=== PATIENT | female | born 1965 | race Caucasian/White ===

== ENCOUNTER 2023-10-11 11:51 | Inpatient (IN) | payer MEDICARE, OTHER, SELFPAY ==
[2023-10-09] VITALS (10 sets, daily range): BP systolic 98–163; BP diastolic 64–86; BMI 15.1; BMI 15.6
--- NOTE | 2023-10-09 10:10 | ED.GENMED ---
History of Present Illness
General
Chief Complaint: Weakness
Time Seen by Provider: 10/09/23 10:08
Travel History
Have you had any contact with someone who has COVID-19?: Unable to Answer
Do you have any symptoms of coronavirus? Fever > 100 degrees, chills, cough, shortness of breath, sore throat, loss of taste or smell, muscle aches, or headache?: Unable to Answer
History of Present Illness
History of Present Illness:
58 yo female w/ hx of MS, seizures, and frequent UTI presents from home via EMS for evaluation of weakness and fever. Typically is quite independent, uses a scooter to maneuver throughout her home. Does have approx 1 hr of nursing care daily. Notes
that she has required lift assists by fire/EMS daily for 2-3 days due to weakness. Also with urgency/burning with urination. Febrile this AM, uncertain if she took an antipyretic. No vomiting.
Past History
Past History
ED Past Medical History: Psychiatric and Other (MS, hemochromatosis, frequent UTIs, self-catheterization)
ED Past Surgical History: None
Social History
Tobacco: Smoker
Alcohol: None
Drug: None
Personal:
Living: alone
Employment: Disabled
Review of Systems
Review of Systems
Allergies reviewed?: Yes
All Other Systems: ROS reviewed and negative except as documented in HPI and ROS
Phy Exam
Physical Exam
Physical Exam:
GEN: Thin and frail, no immediate distress
HEENT: Oral mucosa moist, no scleral icterus
Cardiac: Regular rate and rhythm
Lung: No respiratory distress, no tachypnea, lungs clear to auscultation
Abdomen: Soft, tender in the suprapubic region, no masses or rigidity
MSK: No gross deformity or injuries
Skin: Good color, no pallor or jaundice, no rashes
Neuro: AO x3. Lower extremity contractures are baseline, extreme distracted upper extremity range of motion. Globally weak
Psych: Calm, cooperative
Course
Orders/Labs/Results
Orders:
Orders
10/09/23 10:09
Straight cath- Treatment ONCE
10/09/23 10:32
Complete Blood Count/With Diff Urgent
Comprehensive Metabolic Panel Urgent
Lactic Acid Q4H
Comment: CANCEL 2nd LACTIC ACID IF 1st LACTIC ACID IS LESS THAN 2
Prothrombin Time Urgent
Blood Culture Q30M
FATMATA Source: Blood/Venous
Specimen Description:
10/09/23 10:36
Urinalysis Reflex To Culture Urgent
Date Specimen was Collected: 10/09/23
Time Specimen was Collected: 10:32
Blood Culture Q30M
FATMATA Source: Blood/Venous
Specimen Description:
10/09/23 12:12
COVID-19 Antigen Urgent
Source: Nasal Swab
Influenza A+B Rapid Molecular Urgent
FATMATA Source: Nasal Swab
Specimen Description:
10/09/23 13:30
CefTRIAXone [Rocephin] 1,000 mg IV NOW STA
10/09/23 13:54
Sterile Water [Sterile Water For Injection] 10 ml .ROUTE .STK-MED ONE
10/09/23 14:05
Admit/Transfer Patient As Directed
Co-Sign Provider:
Level of Care: Observation services
Assign to:: Medical/Surgical
Physician / Group: Rohan
Diagnosis: weakness
10/09/23 14:15
Lactic Acid Q4H
Comment: CANCEL 2nd LACTIC ACID IF 1st LACTIC ACID IS LESS THAN 2
Abnormal Lab Results
10/09/23 10/09/23
10:32 10:36
RBC 3.92 L 10^6/uL
(4.20-5.40)
MCV 99.7 H fL
(81.0-99.0)
MCH 33.9 H pg
(27.0-31.0)
Absolute Lymphs (auto) 0.2 L 10^3/uL
(1.2-3.4)
Absolute Monos (auto) 0.7 H 10^3/uL
(0.1-0.6)
Neutrophils % 86.2 H %
(42.2-75.2)
Lymphocytes % 3.3 L %
(20.5-51.1)
Monocytes % 10.0 H %
(1.7-9.3)
Sodium 134 L mmol/L
(135-145)
Chloride 97 L mmol/L
(98-107)
BUN 23 H mg/dl
(7-17)
Creatinine 0.5 L mg/dL
(0.6-1.0)
AST 65 H U/L
(14-36)
ALT 46 H U/L
(0-35)
Alkaline Phosphatase 136 H U/L
(38-126)
Urine Ketones 1+ A
(Negative)
10/09/23 10:32
10/09/23 10:32
Vital Signs
Initial and Last Documented VS:
Initial Vital Signs
BP
121/79
10/09/23 10:05
Last Documented Vital Signs
Temp Pulse Resp BP Pulse Ox
98.5 F 94 18 131/64 96
10/09/23 13:57 10/09/23 14:15 10/09/23 14:15 10/09/23 14:00 10/09/23 13:30
MDM/Problems Addressed
MDM/Problems Addressed:
Patient does have UTI symptoms with dysuria and urgency however urinalysis by straight cath is clear. At this time I have no family obvious cause worsening MS symptoms. Did discuss with the patient regarding the possibility of an isolated MS
exacerbation that may require high-dose steroids however she is quite apprehensive to this due to side effects, at this time I feel it is appropriate to empirically treat for UTI given her associated symptoms as this is a common cause of MS
exacerbations. Will admit to the hospitalist service for further management and potential neurology consultation if symptoms do not improve within the next 24 hours with antibiotics
Comment
Comment:
Prior urine culture data reviewed, typically E coli, occasional fluoroquinolone resistance, no cephalosporin resistance... Will start ceftriaxone empirically
*Critical Care Note
Total Time (30-74mins, 75-104mins- exclusive of procedures): Not Applicable
ED Attending Note
-
Portions of this chart may have been created with voice recognition software.� Occasional wrong word or��sound alike� substitutions may have occurred due to the inherent limitations of voice recognition software.
Discharge Plan
Departure
Patient Disposition: Admit
Date of Disposition: 10/09/23
Time of Disposition: 13:30
Presentation/result/management discussed w/ accepting MD/DO: Hospitalist
Discharge Problem:
Generalized weakness, Multiple sclerosis, UTI symptoms
Interventions
Interventions:
*General Assessment Last Done: 10/09/23 10:11
*Neglect/Abuse Screening Last Done: 10/09/23 10:12
ED- Cardiac Assessment Last Done: 10/09/23 10:14
ED- Neurological Assessment Last Done: 10/09/23 10:14
ED- Pulmonary Assessment Last Done: 10/09/23 10:14
[2023-10-09 10:44] LABS: % Basophils 0.2 % (0-2); % Immature Granulocytes 0.3 % (0-0.5); % Lymphocytes 3.3 % (20.5-51.1); % Neutrophils 86.2 % (42.2-75.2); Absolute Lymphocytes 0.2 10^3/uL (1.2-3.4); Absolute Monocytes 0.7 10^3/uL (0.1-0.6); Absolute Neutrophils 5.7 10^3/uL (1.4-6.5); Hematocrit 39.1 % (37.0-47.0); Hemoglobin 13.3 g/dL (12.0-16.0); Mean Corpuscular Hgb 33.9 pg (27.0-31.0); Mean Corpuscular Volume 99.7 fL (81.0-99.0); Mean Platelet Volume 9.6 fL (7.4-10.4); Nucleated Red Blood Cells % 0 %; Platelet Count 265 10^3/uL (130-400); Red Blood Cell Count 3.92 10^6/uL (4.20-5.40); Red Cell Dist. Width 12.2 % (11.5-14.5); White Blood Cell Count 6.6 10^3/uL (4.8-10.8)
[2023-10-09 10:52] LABS: INR 1.05; PT 13.5 Sec (11.4-14.6)
[2023-10-09 10:52] LABS: Urine Albumin Negative (Neg - Trace); Urine Bilirubin Negative (Negative); Urine Character Clear (Clear); Urine Color Yellow; Urine Glucose Negative (Negative); Urine Ketone 1+ (Negative); Urine Leukocyte Negative (Negative); Urine Nitrite Negative (Negative); Urine Occult Blood Negative (Negative); Urine Specific Gravity 1.005 (<1.030); Urine Urobilinogen Negative (Neg - 1+)
[2023-10-09 10:54] LABS: Lactic Acid 0.9 mmol/L (0.7-2.0)
[2023-10-09 10:56] LABS: ALT (SGPT) 46 U/L (0-35); AST (SGOT) 65 U/L (14-36); Albumin 4.3 g/dl (3.5-5.0); Alkaline Phosphatase 136 U/L (38-126); Blood Urea Nitrogen 23 mg/dl (7-17); Calcium 9.6 mg/dl (8.4-10.2); Carbon Dioxide 29 mmol/L (22-30); Chloride 97 mmol/L (98-107); Estimated Creatinine Clearance 67 ml/min; Glucose 86 mg/dl (70-99); Potassium 3.6 mmol/L (3.5-5.1); Sodium 134 mmol/L (135-145); Total Bilirubin 0.5 mg/dl (0.2-1.3); Total Protein 6.8 g/dl (6.3-8.2); eGFR > 60.00
[2023-10-09 12:37] LABS: COVID-19 Antigen Negative (Negative)
[2023-10-09] MEDS: ROCEPHIN 1000 MG IV (13:58)
--- NOTE | 2023-10-09 14:46 | HPS.HSE ---
Family Physician
-
Family Physician: Ayse Carlos
Chief Complaint
-
Generalized weakness
History of Present Illness
Unfortunate 58-year-old female with history of multiple sclerosis and use assistance like scooter for getting around the house and she lives at home but she has not a daily visiting nurse and nursing 8 to help her out, also her sister checking on
her regularly.
Brought to the hospital complaining of generalized weakness, fatigue and poor appetite with subjective fever also few episodes of nausea and nonbloody vomiting and 3 episodes of the well-formed lower bowel movement neurologically she need rehab care assistant
to move her bowel like disimpaction by visiting nurse but she had those large episode, admit abdominal discomfort but no pain or cramping, denies any chest pain or shortness of breath or nausea or vomiting, admit her urine was dark and kind of
burning and itching, no hematuria. Also admit poor intake over the last few days.
No sick contacts or recent travel dining outside.
Admitted usually able to care for herself when she is alone moving around the house of the scooter but not much last couple of day, she is chronically have weakness of the lower extremity without much movement and it is worse for the last few days,
still have some better movement in upper extremity.
Denies any cough or congestion no choking or aspiration during meals she eats regular food.
Take ibuprofen at least 2-3 times daily and denies any changes stool or urine color or any bleeding event.
Workup in the ER not so far explaining much, mild elevation of the transaminase while urinalysis. Despite getting a dose of IV antibiotic in the ER.
Accompanied by the sister and [id number] at the bedside and she is able to provide detailed information.
Medical History
Past Medical History
Past Medical History: Reports Other
Additional Past Medical History:
Past medical history and archive reviewed:
MS
Functional paraplegia
Hypertension
Former smoker
Mood disorder
Anxiety disorder
Seasonal allergy
Status post amputation of the right greater toe secondary to osteomyelitis
Ambulatory dysfunction
Have bilateral hardening of both gluteal area from the prior injection according to the patient for her MS
Surgical history:
I&D of right gluteal abscess
Breast biopsy
Amputation of the right big toe
Social history: Lives at home gets around with a scooter, and have daily visit by nurse and nursing home assistant
Past Surgical History: Reports Other
Social History
Unable to obtain full social history at this time due to: Other
Family History
Family History: Other
Allergies / Home Medications
Allergies reflects when Allergies were last updated in [facility].
Home Medications with original date entered in [facility]
Allergy/Medication List:
Allergies
Allergy/AdvReac Type Severity Reaction Status Date / Time
No Known Allergies Allergy Verified 10/09/23 13:59
Home Medications
fingolimod 0.5 mg capsule (Gilenya) 0.5 mg PO DAILY MS 06/30/17
ibuprofen 400 mg tablet 400 mg PO TID 06/30/17
losartan 50 mg tablet 50 mg PO BID Blood pressure 06/30/17
multivitamin with minerals (Hair,Skin and Nails tablet) 1 ea PO DAILY Supplement 01/23/19
citalopram 20 mg tablet 40 mg PO DAILY Depression 05/31/19
alprazolam 0.5 mg tablet 0.5 mg PO TID Mental Health/Anxiety 12/09/20
baclofen 20 mg tablet 20 mg PO QID Muscle spasms 12/09/20
methenamine hippurate 1 gram tablet 500 mg PO BID Urinary issue 12/09/20
mirabegron 25 mg tablet,extended release 24 hr (Myrbetriq) 25 mg PO DAILY Urinary issue 12/09/20
modafinil 200 mg tablet 100 mg PO DAILY Stimulant 12/09/20
temazepam 15 mg capsule 30 mg PO HS Sleep 12/09/20
amlodipine 5 mg tablet (Norvasc) 5 mg PO DAILY #20 tabs 05/08/21
cranberry fruit concentrate 250 mg chewable tablet (Azo Cranberry) 500 mg PO DAILY 10/09/23
Review of Systems
-
A 12 point ROS was completed and negative except as noted: Yes
Physical Exam
Vital Signs
Vital Signs
Temp Pulse Resp BP Pulse Ox
98.5 F 94 18 131/64 96
10/09/23 13:57 10/09/23 14:15 10/09/23 14:15 10/09/23 14:00 10/09/23 13:30
Physical exam:
General: Lethargic awake, alert and oriented x3, not in distress and holds appropriate conversation.
HEENT: No active discharge, ecchymosis or bruising, very dry lips, tongue and mucous membrane.
Eyes: No discharge or red conjunctiva, no nystagmus, pupils are reactive and equal
Neck:Supple, no JVD no bruit no goiter.
Respiratory: Normal AP contour and diameter, normal chest wall movement, normal respiratory effort, no respiratory distress,
Lungs: Good air entry bilaterally, no wheezing or rhonchi, no rales or crackles
Heart: S1, S2 regular, normal rate, no added sound.
Gastrointestinal: Positive bowel sounds, soft, nontender, no guarding or rigidity or organomegaly
Musculoskeletal:-Patchy hardening nodules in the both buttocks area, no ulceration but mild redness in mid upper back, no much movement in the lower extremities well have a good movement in upper extremities,, no chest wall abnormality or
tenderness. no muscle tenderness or any joint swelling or tenderness.
Extremities: Right big toe amputation, no pitting edema, good peripheral pulses, good range of motion
Skin: Warm and dry, no ulceration, normal color.
Neurological: Awake, alert and oriented x3, cranial nerve II-XII grossly intact, speech clear and comprehensive, good muscle tone, normal sensory and upper extremity with mild motor weakness in upper extremity, lower extremities have decreased
sensation and decreased motor ability able to move it from [id number] and not able to lift it off the bed,
Psychiatric: Normal mood, normal thought and judgment, normal affect,
Physical Exam
General: Other
Laboratory Results
-
10/09/23 10:32
10/09/23 10:32
Laboratory Results
PT 13.5 Sec (11.4-14.6) 10/09/23 10:32
INR 1.05 10/09/23 10:32
Lactic Acid 0.9 mmol/L (0.7-2.0) 10/09/23 10:32
Total Bilirubin 0.5 mg/dl (0.2-1.3) 10/09/23 10:32
AST 65 U/L (14-36) H 10/09/23 10:32
ALT 46 U/L (0-35) H 10/09/23 10:32
Alkaline Phosphatase 136 U/L (38-126) H 10/09/23 10:32
Data Reviewed
-
Medical Tests (Nuc Med, Echo, EKG etc): Discussed with Nurse, Discussed with Patient and Discussed with Family
Lab Data: Labs Reviewed by me, Discussed with Patient and Discussed with Family
Old Records: Reviewed
Impression/Plan
-
IMPRESSION:
58-year-old female with history of MS presented with generalized weakness, worse over baseline, some urinary symptoms also last couple of days she has some episodes of the vomiting and large bowel movement while wet and loose, concern for viral
gastroenteritis and dehydration, UA showed no evidence of UTI while MS flareup could be a possibility.
Generalized weakness
Concern for MS flareup
Urinary symptom but no evidence of urinary tract infection urinalysis
Nausea and vomiting
Possible viral gastroenteritis
Hyponatremia sodium 134 on admission
Dehydration, BUN is 23
Elevated transaminitis, possibly from muscular while the process could be a possibility but she has no abdominal pain will monitor for now.
Functional paraplegia
Ambulatory dysfunction
MS
Hypertension
Anxiety and mood disorder
PLAN:
Will hold off further antibiotics received a dose in the ER send there is no source of infection
Lactic acid and blood culture collected
I will get x-ray of the chest to complete the workup
IV fluid with normal saline 100 mill per hour for the next 20 hours
Nausea medication
Aspiration fall precaution
I will give a dose of Solu-Medrol for suspected MS flareup, discussed with neurology and they will see the patient.
Neurology consult.
Defer further workup and eval to neurology.
Advised about not taking NSAID regularly as she takes 400 mg ibuprofen 2-3 times daily, risks and side effects further explained at least need to take some H2 deni or PPI I will start famotidine twice daily for now.
Recheck lab.
PT OT
Monitor vital sign.
All discussed with the patient and the family
Discussed with the nurse
CODE STATUS full code
DVT prophylaxis is Lovenox
--- NOTE | 2023-10-09 15:07 | CON.NEURO ---
Neuro Assessment/Plan
Assessment
IMPRESSIONS/RECOMMENDATIONS:
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
No evidence of UTI, however, patient is experiencing nausea and photophobia
Plan
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
There is no evidence at this time patient would benefit from the use of high-dose steroids
Would consider MRI of brain if patient reported new weakness or visual change, neither of which is the patient reporting currently
Will continue to follow peripherally.
Consultation
Order
Date of Consultation: 10/09/23
Requesting Provider: Hospitalist
Reason for Consult: Multiple Sclerosis
Subjective/Objective
Subjective Data
Date of Service: October 09, 2023
DATE/TIME OF CONSULTATION: 06/05/2019 at 1000
Reason for Consultation: possible MS Flare
History of Present Illness:
This is a 53 year old female who has presented to the hospital with weakness and body aches. Patient reports day prior to admission (05/30/2019) She started to feel very achy and had a low grade fever. She also reported nausea. In the emergency
department she was found to have rhabdomyolysis, CPK > 1200. At baseline pt is wheelchair bound secondary to MS. She was diagnosed with MS at age 22. She follows with Dr. David Mireles at [facility]. She is unable to recall when her last appointment was
or when she las had MRI's. She is currently on Gilenya, is unable to recall how long, or what previous medications she has been on. She reports she has chronic blurred vision. She has had contractures of b/l LE for many years. She self catheterizes
herself and on day of admission she was unable to cath herself. Once of her nurses came and catheterized her and told her her urine was cloudy. Once admitted she started with a diffuse erythematous rash, she has had periorbital redness, and
swelling. She is reporting b/l eye pain, which feels like pins and needles and therefor is having trouble opening her eyes. She reports maybe a mild increase in blurred vision. Since admission she has been seen by Rheumatology-they believe that
symptoms are related to rhabdo. She has now been seen by hematology, they are going to work her up for amyloid. Plans for bx and myeloma workup. She still complains of joint and muscle aches. She states she is still weak and has eye pain.
IMPRESSIONS/RECOMMENDATIONS:
Abrupt onset of eye pain
with prolonged hx of Multiple Sclerosis, recent elevation in CPK and ESR
and prior dx of hemochromatosis
REC:
check MRI of brain with and without to determine if optic neuritis present
consider steroids to treat ? dermatomyositis with violaceous periorbital rash
consider additional MRIs
follow serial CPK, ESR, CRP
continue fingolimod until additional information available
would withhold steroids until clarity regarding new exacerbation or absence of same
Patient reports sense of pruritis and frequency of urination since approximately 1 week ago. 3 days ago had greater difficulty with transfer and generalized strength with overall sense of ennui. Two days ago had emesis. Has experienced similar
symptoms timed with UTI.
Previously exposed to Betaseron (beta-interferon). Also has utilized Modafinil for fatigue. Patient no longer drives.
Has sense generalized weakness 1-2x/year.
Objective Data
Vital Signs
Temp Pulse Resp BP Pulse Ox
36.9 C 94 18 131/64 96
10/09/23 13:57 10/09/23 14:15 10/09/23 14:15 10/09/23 14:00 10/09/23 13:30
Lab Results
10/09/23 10:32
10/09/23 10:32
PT 13.5 Sec (11.4-14.6) 10/09/23 10:32
INR 1.05 10/09/23 10:32
Sodium 134 mmol/L (135-145) L 10/09/23 10:32
Potassium 3.6 mmol/L (3.5-5.1) 10/09/23 10:32
BUN 23 mg/dl (7-17) H 10/09/23 10:32
Glucose 86 mg/dl (70-99) 10/09/23 10:32
Calcium 9.6 mg/dl (8.4-10.2) 10/09/23 10:32
Patient Allergies
No Known Allergies Allergy (Verified 10/09/23 13:59)
Review of Systems
-
History Source: Patient
All other systems: Reviewed and negative
EENT: Other (white lights in vision); Negative Decreased Vision or Swallowing Difficulty
Respiratory: Negative Trouble Breathing
Cardiac: Chest Pain (left-side x 2 days)
Abdomen/GI: Nausea; Negative Incontinence of Stool
Genitourinary: Incontinence
Musculoskeletal: Other (buttocks, right hip); Negative Back Pain or Neck Pain
Neuro: Other (toes, photophobia); Negative Dizzy or Headache
Physical Exam
-
General: No Apparent Distress and Appears Stated Age
Eyes: OU Absent Papilledema, Round OU, [place] Conjunctivae and No Ptosis
HEENT: Anicteric and Moist Mucous Membranes
Neck: Full Range of Motion
Respiratory: No Dyspnea
Cardiac: No JVD
GI: Non-distended
Extremities: No Clubbing, No Cyanosis and No Edema
Psych: Intact Judgement/Insight
Extended Neurological Exam
Mood & Affect: Mood Unremarkable and Affect Unremarkable
Attention Span & Concentration: Awake, Alert, Interactive and No Difficulty with 2 Step Request
Memory: Unremarkable
Tremor: Hand Tremor Absent and Head Tremor Absent
Involuntary Movement: Other (Minimal spastic movements of the right lower extremity after passive movement)
Speech: Quality Unremarkable and Quantity Unremarkable
Cranial Nerve II: Left Eye: Pupillary Reactivity Unremarkable, Pupillary Size Unremarkable and Visual Hallman Intact
Cranial Nerve II: Right Eye: Pupillary Reactivity Unremarkable, Pupillary Size Unremarkable and Visual Hallman Intact
Cranial Nerves III, IV, : Extraocular Movement: Extraocular Movement Full in all Directions
Cranial Nerve VII: Facial Symmetry: Normal Facial Symmetry
Cranial Nerve VIII: Hearing: Unremarkable Hearing to Normal Conversational Volume
Cranial Nerves IX, X: Palate Movement: Palate Elevation Symmetric
Cranial Nerve XII: Tongue Protusion: Midline
Muscle Strength, Overall: Absent (In bilateral lower extremities)
Muscle Bulk & Tone: Decreased Bulk (In bilateral upper extremities) and Increased Tone (In bilateral lower extremities severely equally)
Pronator Drift: No Drift in Upper Extremities and Unable to Assess (Bilateral lower extremities)
Deep Tendon Reflexes: Absent Throughout
Touch Sensation: Unremarkable
Coordination: [id number] Testing Unremarkable
Babinski Sign: Absent Bilaterally
Gait & Station: Unable to Assess
Data Reviewed
-
CT Head: Report Reviewed
Labs: Ordered and Report Reviewed
Reviewed with: Physician, Patient and Family
Old Records: Summarized
Medications
-
Home Medications
�Medication �Instructions �Recorded
fingolimod 0.5 mg capsule (Gilenya) 0.5 mg PO DAILY MS 06/30/17
ibuprofen 400 mg tablet 400 mg PO TID 06/30/17
losartan 50 mg tablet 50 mg PO BID Blood pressure 06/30/17
multivitamin with minerals 1 ea PO DAILY Supplement 01/23/19
(Hair,Skin and Nails tablet)
citalopram 20 mg tablet 40 mg PO DAILY Depression 05/31/19
alprazolam 0.5 mg tablet 0.5 mg PO TID Mental Health/Anxiety 12/09/20
baclofen 20 mg tablet 20 mg PO QID Muscle spasms 12/09/20
methenamine hippurate 1 gram tablet 500 mg PO BID Urinary issue 12/09/20
mirabegron 25 mg tablet,extended 25 mg PO DAILY Urinary issue 12/09/20
release 24 hr (Myrbetriq)
modafinil 200 mg tablet 100 mg PO DAILY Stimulant 12/09/20
temazepam 15 mg capsule 30 mg PO HS Sleep 12/09/20
amlodipine 5 mg tablet (Norvasc) 5 mg PO DAILY #20 tabs 05/08/21
cranberry fruit concentrate 250 mg 500 mg PO DAILY 10/09/23
chewable tablet (Azo Cranberry)
Past History
Past History
ED Past Medical History: HTN, Psychiatric and Other (MS, hemochromatosis, frequent UTIs, self-catheterization, right hip dislocation, emphysema)
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
Social History
Tobacco: Non-smoker
Alcohol: Former
Drug: None
Personal:
Living: alone
Employment: Disabled
Family History
Family History: Other (reviewed and non-contributory)
[2023-10-09 16:13] LABS: Erythrocyte Sed Rate 19 mm/hour (0-20)
[2023-10-09] MEDS: XANAX 0.5 MG PO ×2 (16:47→21:38)
[2023-10-09] MEDS: LOVENOX 40 MG SC (16:47)
[2023-10-09] MEDS: LIORESAL 20 MG PO ×2 (16:48→21:36)
[2023-10-09] MEDS: NSS 1000 IV (16:51)
[2023-10-09 17:35] LABS: TSH Reflex To Free T4 2.91 uIU/ml (0.47-4.68)
[2023-10-09 17:39] LABS: Ferritin 70.4 ng/ml (11.1-264.0)
--- NOTE | 2023-10-09 18:09 | PTCARENOTE ---
Patient home med Deneen sent to pharmacy and verification of retrieval provided via phone by HAYLIE.
[2023-10-09 18:11] LABS: Folate > 20.0 ng/ml (2.76-20); Vitamin B12 742 pg/ml (239-931)
--- NOTE | 2023-10-09 18:11 | PTCARENOTE ---
Patient reported to RN steroids were not recommended for her current tx in hospital, states she was informed this in person in ED, RN reached out to Neurology. Patient IV Methylpredisone DC per Dr. Casillas and Carolina Madrigal via tiger text.
--- NOTE | 2023-10-09 20:00 | PTCARENOTE ---
Pt reports she str caths herself q3-4 hrs at home. Pt also states bladder scans are not accurate d/t her anatomy. Pt last str cathed in ED at 1300 per pt and she c/o the urge to void but is unable to. House HADOOP ANALYST made aware and orders obtained and pt
str cathed without difficulty.
[2023-10-09] MEDS: PEPCID 20 MG PO (20:05)
[2023-10-09] MEDS: HIPREX 0.5 GRAM PO (20:05)
[2023-10-09] MEDS: COZAAR 50 MG PO (20:05)
[2023-10-09] MEDS: RESTORIL 30 MG PO (21:38)
[2023-10-10] MEDS: NSS 1000 IV (03:31)
[2023-10-10 06:27] LABS: % Basophils 0.3 % (0-2); % Eosinophils 0.3 % (0-6); % Immature Granulocytes 0.3 % (0-0.5); % Lymphocytes 4.3 % (20.5-51.1); % Monocytes 11.9 % (1.7-9.3); % Neutrophils 82.9 % (42.2-75.2); Absolute Lymphocytes 0.2 10^3/uL (1.2-3.4); Absolute Monocytes 0.5 10^3/uL (0.1-0.6); Absolute Neutrophils 3.3 10^3/uL (1.4-6.5); Hematocrit 36.1 % (37.0-47.0); Hemoglobin 12.6 g/dL (12.0-16.0); Mean Corp Hgb Conc. 34.9 g/dL (33.0-37.0); Mean Corpuscular Hgb 33.6 pg (27.0-31.0); Mean Corpuscular Volume 96.3 fL (81.0-99.0); Mean Platelet Volume 9.7 fL (7.4-10.4); Nucleated Red Blood Cells % 0 %; Platelet Count 222 10^3/uL (130-400); Red Blood Cell Count 3.75 10^6/uL (4.20-5.40); Red Cell Dist. Width 12.1 % (11.5-14.5)
--- NOTE | 2023-10-10 06:36 | W.PN.HOSP.TC ---
Today's Communication/Plan
-
PT/OT eval
replete potassium magnesium
observe
discharge planning home rehab set up
Assessment / Plan
Assessment / Plan
Physical Exam
General: No pallor, cyanosis, or jaundice. Cachectic
HEENT: Throat clear. PERRLA Normocephalic atraumatic
NECK: Supple. No JVD Carotid Bruits
RESPIRATORY: Lungs clear to auscultation. No crackles wheezes stridor
CVS: S1, S2 normal. RRR. No murmur, rub or gallop.
ABDOMEN: Soft, non-tender. No distension. BS+/normal.
EXTREMITIES: No peripheral cyanosis or edema. Thin lower ext's, 1-2/5 strength lower ext's b/l baseline as per patient
FAMILY PROTECTION SPECIALIST: AOx3
58-year-old female with history of MS presented with generalized weakness, worse over baseline, some urinary symptoms also last couple of days she has some episodes of the vomiting and large bowel movement while wet and loose, concern for viral
gastroenteritis and dehydration, UA showed no evidence of UTI, MS flare ruled out as per neuro eval
Generalized weakness
Concern for MS flareup (ruled out as per Neuro)
Patient self cath at baseline, UA neg for UTI
Nausea and vomiting Possible viral gastroenteritis vs adverse food rxn (resolved)
Mild Hyponatremia stable
Mild Transaminitis resolving
Functional paraplegia
Ambulatory dysfunction
Hypertension
Anxiety and mood disorder
Chronic Constipation, visiting nurse disimpacts patient daily, pt refuses laxatives
PLAN:
received empiric abx in ED, monitoring off
Lactic acid negative, blood culture NGTD
CXR not suggestive of PNA, signs of severe COPD noted (stable respiratory status on room air)
IVF support completed
Nausea medication prn
Aspiration fall precaution
Patient Advised about not taking NSAID regularly as she takes 400 mg ibuprofen 2-3 times daily, risks and side effects further explained at least need to take some H2 deni or PPI, famotidine twice daily started.
Urinary Retention with Overflow incontinence
patient frequently self cath at home baseline
refuses Palafox
[facility]
PT OT eval pending, patient has made clear that she refuses SNF rehab placement but would be in favor for home rehab set up.
Hypokalemia
Hypomagnesemia
monitor and replete as necessary
Discussed with patient and her nephew Triston
Discussed with the nurse
CODE STATUS full code
DVT prophylaxis is Lovenox
Observation
I spent a total of 60 minutes with the patient or on the floor. More than 50% of this time involved counseling and coordination of care.
Anticipated Discharge: Within 24 hours
Subjective/Interval History
-
Date of Service: October 10, 2023
No acute distress resting comfortably in bed. reports overall feeling well. Continues to report generalized weakness.
Objective Data
-
Labs:
Laboratory Results
10/10/23
05:47
WBC 4.0 L
Hgb 12.6
Hct 36.1 L
Plt Count 222
Sodium Pending
Potassium Pending
Chloride Pending
Carbon Dioxide Pending
BUN Pending
Creatinine Pending
Glucose Pending
Calcium Pending
Total Bilirubin Pending
AST Pending
ALT Pending
Alkaline Phosphatase Pending
Vital Signs:
Vital Signs
Temp Pulse Resp BP Pulse Ox
98.9 F 96 18 143/69 97
10/09/23 23:19 10/09/23 23:19 10/09/23 23:19 10/09/23 23:19 10/09/23 23:19
I&O
10/08/23 10/09/23 10/10/23
06:59 06:59 06:59
Intake Total 2040 / 2040
Output Total 750 / 750
Balance 1289 / 1290
[2023-10-10 06:52] LABS: ALT (SGPT) 32 U/L (0-35); AST (SGOT) 48 U/L (14-36); Albumin 3.3 g/dl (3.5-5.0); Alkaline Phosphatase 102 U/L (38-126); Blood Urea Nitrogen 14 mg/dl (7-17); Calcium 8.5 mg/dl (8.4-10.2); Carbon Dioxide 22 mmol/L (22-30); Chloride 103 mmol/L (98-107); Estimated Creatinine Clearance 70 ml/min; Glucose 75 mg/dl (70-99); Magnesium 1.4 mg/dl (1.6-2.3); Potassium 3.4 mmol/L (3.5-5.1); Sodium 135 mmol/L (135-145); Total Bilirubin 0.4 mg/dl (0.2-1.3); Total Protein 5.4 g/dl (6.3-8.2); eGFR > 60.00
[2023-10-10 07:00] VITALS: BP 146/86
[2023-10-10 07:15] LABS: TSH 3.36 uIU/ml (0.47-4.68)
[2023-10-10] MEDS: KCL 40 MEQ PO (08:44)
[2023-10-10] MEDS: MYRBETRIQ EXTENDED RELEASE 25 MG PO (08:44)
[2023-10-10] MEDS: PROVIGIL 100 MG PO (08:44)
[2023-10-10] MEDS: HIPREX 0.5 GRAM PO ×2 (08:45→20:18)
[2023-10-10] MEDS: LIORESAL 20 MG PO ×4 (08:46→22:23)
[2023-10-10] MEDS: XANAX 0.5 MG PO ×3 (08:46→22:23)
[2023-10-10] MEDS: PEPCID 20 MG PO ×2 (08:46→20:18)
[2023-10-10] MEDS: COZAAR 50 MG PO ×2 (08:46→20:18)
[2023-10-10] MEDS: CELEXA 40 MG PO (08:46)
[2023-10-10] MEDS: NORVASC 5 MG PO (08:46)
[2023-10-10] MEDS: NON-FORMULARY ITEM 0.5 MG PO (08:47)
[2023-10-10] MEDS: MAGNESIUM SULFATE 50 IV (08:48)
[2023-10-10 09:25] LABS: Vitamin B12 739 pg/ml (239-931)
[2023-10-10 11:24] LABS: Phosphorus 3.6 mg/dl (2.5-4.5)
[2023-10-10 15:00] VITALS: BP 150/81
--- NOTE | 2023-10-10 15:51 | CM ---
Patient seen bedside, initial assessment completed. Patient reports she resides in a private home with a first floor set up, has a private duty nurse every day minus Wednesday, has additional care 4 days a week to assist with cooking and cleaning.
Patient reports she has a scooter, grab bars, hospital bed, seat lift in bathroom, raised toilet seat. Patient reports [facility], history of SNFs. Patient confirms PCP Ayse Carlos, pharmacy [facility]. KLINE letter explained,
refused to sign, placed in patients chart. Patient requesting [facility] upon discharge, does not want to go to a facility. CM will continue to follow for discharge planning needs.
Plan; home with services, does not want to go to SNF.
[2023-10-10] MEDS: LOVENOX 40 MG SC (17:40)
[2023-10-10] MEDS: RESTORIL 30 MG PO (22:23)
[2023-10-10 23:00] VITALS: BP 118/53
[2023-10-11 07:06] LABS: Hematocrit 37.7 % (37.0-47.0); Hemoglobin 12.9 g/dL (12.0-16.0); Mean Corp Hgb Conc. 34.2 g/dL (33.0-37.0); Mean Corpuscular Hgb 33.9 pg (27.0-31.0); Platelet Count 241 10^3/uL (130-400); Red Blood Cell Count 3.81 10^6/uL (4.20-5.40); Red Cell Dist. Width 12.4 % (11.5-14.5); White Blood Cell Count 2.9 10^3/uL (4.8-10.8)
[2023-10-11 07:29] LABS: Blood Urea Nitrogen 14 mg/dl (7-17); Calcium 8.7 mg/dl (8.4-10.2); Carbon Dioxide 23 mmol/L (22-30); Chloride 103 mmol/L (98-107); Estimated Creatinine Clearance 70 ml/min; Glucose 79 mg/dl (70-99); Magnesium 1.8 mg/dl (1.6-2.3); Phosphorus 4.1 mg/dl (2.5-4.5); Potassium 3.5 mmol/L (3.5-5.1); Sodium 133 mmol/L (135-145); eGFR > 60.00
[2023-10-11 07:39] VITALS: BP 128/64
[2023-10-11] MEDS: CELEXA 40 MG PO (08:55)
[2023-10-11] MEDS: NON-FORMULARY ITEM 0.5 MG PO (08:56)
[2023-10-11] MEDS: COZAAR 50 MG PO ×2 (08:56→21:13)
[2023-10-11] MEDS: HIPREX 0.5 GRAM PO ×2 (08:56→21:12)
[2023-10-11] MEDS: PROVIGIL 100 MG PO (08:57)
[2023-10-11] MEDS: LIORESAL 20 MG PO ×4 (08:57→21:11)
[2023-10-11] MEDS: MYRBETRIQ EXTENDED RELEASE 25 MG PO (08:57)
[2023-10-11] MEDS: NORVASC 5 MG PO (08:57)
[2023-10-11] MEDS: PEPCID 20 MG PO ×2 (08:57→21:13)
[2023-10-11] MEDS: XANAX 0.5 MG PO ×3 (08:58→21:12)
[2023-10-11] MEDS: TYLENOL 650 MG PO (09:24)
[2023-10-11 09:54] VITALS: BP 110/55; PULSE 87
--- NOTE | 2023-10-11 13:21 | CON.MD ---
Consultation - Medical
-
Referring Provider: Dr. Danielle Jackson
Chief Complaint: Worsening weakness
History of Present Illness: 58-year-old female with past medical history multiple sclerosis and hemochromatosis presented to [place] emergency department 10/09/23 with generalized weakness with some vomiting and concern for gastroenteritis. She
was seen by neurology without concern for worsening multiple sclerosis. Thought likely with some deconditioning secondary to possible gastroenteritis.
She notes she has had multiple sclerosis being in her 20s and has had a overall decline in her function. She currently has some cognitive concerns and has essentially loss use of her lower extremities over time. She uses a scooter and transfers
from bed to scooter to commode over her toilet at home. She has been able to remain independent but continues to have worsening spasms and worsening positioning leading to skin concerns. She had gone up to baclofen 20 mg 3 times a day for spasm
control which she notes did improve her positioning and spasms but still was not good enough. She has never been evaluated for Botox, wheelchair or baclofen pump. Her nephew is with her and notes some progressive worsening of concerns. Patient does
not drink enough fluids and is often dehydrated because she is afraid of having to go to the bathroom more often. She has been straight cathing since her 20s because she was told that she had to. She does empty at times on her own but apparently has
not had urodynamics.
She does have some people to come to help her in various amounts throughout the week.
Past Medical History: Anxiety, multiple sclerosis, chronic urinary retention(straight cathing at home), lower extremity contractures versus spasms, hypertension, tobacco abuse, aspiration pneumonia, lung mass, hemochromatosis, sepsis with right
buttocks abscess
Procedure History: Ear tubes, skin procedure right hip. Right buttocks abscess I&D
Family History: Father with colon cancer, mother with lung concerns but was heavy smoker.
Social History:
Functional Level Premorbidly: Assistance with ADLs and homemaking, uses scooter for mobility and transfers from scooter, has assistance 6 days a week in the morning and additional 4 hours 4 days a week..
Functional Level Currently: Max assist bed mobility, dependent transfers
Tobacco: Smoking history
Alcohol: Denies
Drug use: Denies
Lives with: Alone
24-hour assistance available: No
Number of floors: 1
# steps to enter: 0
Driving: No
Occupation: Disability
Allergies:
Allergy/AdvReac Type Severity Reaction Status Date / Time
No Known Allergies Allergy Verified 10/09/23 13:59
Review of Systems:
Constitutional: (x) Normal _
Eye: (x) Normal _
Ear/Nose/Throat: (x) Normal _
Respiratory: (x) Normal _
Cardiovascular: (x) Normal _
Gastrointestinal: (x) abnormal_chronic constipation requiring manual evacuation
Genitourinary: (x) abnormal_intermittent cath program at home unable to void on her own, however is incontinent of urine at the hospital.
Musculoskeletal: (x) abnormal_spasm pain in bilateral lower extremities
Integumentary: (x) abnormal_various skin concerns with worsening of spasticity and positioning.
Neurologic: (x) abnormal_multiple sclerosis with cognitive and lower extremity motor control/spasticity concerns.
Psychiatric: (x) abnormal_anxiety
Endocrine: (x) Normal _
Hematologic/Lymphatic: (x) Normal _
Allergic/Immunologic: (x) Normal _
Medications:
Active Current Visit Medication List
Category Date Time Status
Acetaminophen [Tylenol] Med 10/09/23 16:12 Active
650 mg PO Q4HPRN PRN
Alprazolam [Xanax] Med 10/09/23 16:00 Active
0.5 mg PO TID
Amlodipine [Norvasc] Med 10/10/23 08:00 Active
5 mg PO DAILY
Baclofen [Lioresal] Med 10/09/23 18:00 Active
20 mg PO QID
Citalopram [Celexa] Med 10/10/23 08:00 Active
40 mg PO DAILY
Enoxaparin Sodium [Lovenox] Med 10/09/23 18:00 Active
40 mg SC QPM
Famotidine [Pepcid] Med 10/09/23 20:00 Active
20 mg PO BID
Flush (0.9% Sodium Chloride) [Flush (Nss)] Med 10/09/23 17:00 Active
See Dose Instructions IV PER PROTOCOL
Ibuprofen [Motrin] Med 10/09/23 16:00 Active
400 mg PO TID PRN
Losartan [Cozaar] Med 10/09/23 20:00 Active
50 mg PO BID
Methenamine Hippurate [Hiprex] Med 10/09/23 20:00 Active
0.5 gram PO BID
Mirabegron Extended Release [Myrbetriq Extended Release Med 10/10/23 08:00 Active
]
25 mg PO DAILY
Modafinil [Provigil] Med 10/10/23 08:00 Active
100 mg PO DAILY
Ondansetron Injectable [Zofran] Med 10/09/23 16:12 Active
4 mg IV Q6HPRN PRN
Temazepam [Restoril] Med 10/09/23 22:00 Active
30 mg PO HS
fingolimod [Gilenya] Med 10/10/23 08:00 Active
See Dose Instructions PO DAILY
Vitals:
Temp Pulse Resp BP Pulse Ox
98.5 F 87 18 128/64 95
10/11/23 07:39 10/11/23 07:39 10/11/23 07:39 10/11/23 07:39 10/11/23 08:45
Height 5 ft 5 in
Actual Weight 42.592 kg
Body Mass Index (BMI) 15.6
Physical Exam:
General Appearance/Observation: Well-developed, well-nourished female with knees up towards her chest lying in bed with multiple pillows and heel protectors.
Pain/Comfort Assessment: Denies currently, can have pain with spasms.
Mood/Affect: Anxious
Integumentary: Right prior first toe amputation
Eyes: Conjunctiva/Lids: normal Pupils: pupils equal round and reactive to light and Accommodation
Ears/Nose/Throat: oral mucosa moist, throat clear. Lips/Teeth/Gums: normal
Neck: No muscle spasm or tenderness
Cardiovascular: Heart: regular, no murmur
Pulses: dorsalis pedis 2+ bilaterally
Respiratory: Respiratory Effort/Chest Expansion: normal Auscultation: Clear to auscultation bilaterally
Gastrointestinal: abdomen not tender, no distension, normal abdominal bowel sounds
Genitourinary: No Palafox
Extremities: Edema: None, no calf tenderness. Limited lower extremity exam due to severe spasticity.
Neurology Exam:
Orientation: Alert, Oriented to self, Time, Place
Memory: Impaired for some historical information
Speech: Intact
Comprehension: Impaired
Two step command: Intact
Cranial Nerves:
CNII: Pupillary light reflex: Intact
CN III, IV, : Extraocular muscles: Intact
CN V: Facial Sensation at Forehead: Intact , Maxilla: Intact, Mandible: Intact
CN VII: Facial movement: Symmetric
CN VIII: Hearing: Normal
CN IX/X: Speech & swallow: Normal, Position of Uvula: Midline
CN XI: Shoulder shrug: Symmetric
CN XII: Tongue protrusion: Midline
Sensory:
Light touch: Intact in bilateral upper and lower extremities
Reflexes:
Biceps: 2+ bilaterally
Brachioradialis: 2+ bilaterally
Triceps: 2+ bilaterally
Patellar: 3+ bilaterally
Achilles: 3+ bilaterally
Babinski: Not assessed
Cerebellar: Dysmetria/Ataxia: No dysmetria
Musculoskeletal:
Motor: (Manual muscle scale 0-5)
Muscle SA EF WE EE FF FA HF KE DF EHL PF
Right 5 5 4 4 4 0 0 0 - 0
Left 5 5 4 4 4 0 0 0 0 0
Tone: Significantly increased in all extremities, particularly Bilateral lower extremities
Range of Motion: Limited range of motion in both lower extremity secondary to spasticity
Lab Results
Laboratory Data
10/11/23 05:35
10/11/23 05:35
PT 13.5 Sec (11.4-14.6) 10/09/23 10:32
INR 1.05 10/09/23 10:32
Total Bilirubin 0.4 mg/dl (0.2-1.3) 10/10/23 05:47
AST 48 U/L (14-36) H 10/10/23 05:47
ALT 32 U/L (0-35) 10/10/23 05:47
Alkaline Phosphatase 102 U/L (38-126) 10/10/23 05:47
Total Protein 5.4 g/dl (6.3-8.2) L D 10/10/23 05:47
Albumin 3.3 g/dl (3.5-5.0) L 10/10/23 05:47
Diagnostic Results: as per HPI
Assessment
58-year-old right-hand dominant female PMH of multiple sclerosis with what appears to be neurogenic bowel and bladder and severe lower extremity spasticity with debility from possible gastroenteritis.
Plan
PM&R PT/OT to increase independence with ADLs, improve balance, coordination, endurance, strength, mobility, community reintegration, decreased burden of care on others and family education.
-She would benefit from an outpatient evaluation for power mobility and appropriate seating to help prevent pressure sores.
MS: Has been on Gilenya. Has bilateral lower extremity severe spasticity with neurogenic bladder requiring straight catheter many years however has not had official urodynamics which should be done as an outpatient. On Provigil for attention
improvement, baclofen for spasticity. Nonambulatory at home and uses scooter but able to transfer on her own from surface to surface with assistance from caregiver for ADLs.
Spasticity: Baclofen 20 mg 4 times a day, risk for skin breakdown and infections if she does not have proper management of her lower extremities. Still significant lower extremity spasticity, may benefit from Botox or baclofen pump in the future if
she is interested.
-At high risk of having wounds that will lead to further surgeries, further debility, and possibly pain/infection/worsening spasms.
Pressure ulcer prevention: Vitamin C, zinc, multivitamin. Weight shifts in wheelchair and bed. Pressure-relief of heels.
HTN: Norvasc, losartan. Monitor closely
Psych: Has anxiety/depression. Monitor mood, adjust Cymbalta as needed. Xanax as needed very overwhelmed with change and new concerns exacerbated by her cognitive deficits from multiple sclerosis plus or minus hemochromatosis. Takes Restoril for
sleep.
Skin: monitor for pressure sores/rashes/lesions.
Pain: acetaminophen as needed.
Neurogenic Bowel: Colace and Senna, PRN bisacodyl. Notes requiring frequent disimpaction at home.
Neurogenic Bladder: Has history of UTI. Self intermittent catheterization program that she had been doing for years.
DVT Prophylaxis Mechanical and heparin.
Pulmonary: Incentive spirometry
Safety: Continue to reinforce assistance with all transfers.
Code Status: Full code
Functional and Medical Goals: Patient will be able to transfer on her own, navigate with scooter and return to prior level assistance with ADLs.
Discharge Destination: SNF as discussed with patient.
--- NOTE | 2023-10-11 14:29 | W.PN.HOSP.TC ---
Today's Communication/Plan
-
Physiatry consulted
Assessment / Plan
Assessment / Plan
Physical Exam
General: No pallor, cyanosis, or jaundice. Cachectic
HEENT: Throat clear. PERRLA Normocephalic atraumatic
NECK: Supple. No JVD Carotid Bruits
RESPIRATORY: Lungs clear to auscultation. No crackles wheezes stridor
CVS: S1, S2 normal. RRR. No murmur, rub or gallop.
ABDOMEN: Soft, non-tender. No distension. BS+/normal.
EXTREMITIES: No peripheral cyanosis or edema. Thin lower ext's, 1-2/5 strength lower ext's b/l baseline as per patient
PROGRAM DIRECTOR AIR TALENT: AOx3
58-year-old female with history of MS presented with generalized weakness, worse over baseline, some urinary symptoms also last couple of days she has some episodes of the vomiting and large bowel movement while wet and loose, concern for viral
gastroenteritis and dehydration, UA showed no evidence of UTI, MS flare ruled out as per neuro eval
Generalized weakness
Concern for MS flareup (ruled out as per Neuro)
Patient self cath at baseline, UA neg for UTI
Nausea and vomiting Possible viral gastroenteritis vs adverse food rxn (resolved)
Mild Hyponatremia stable
Mild Transaminitis resolving
Functional paraplegia
Ambulatory dysfunction
Hypertension
Anxiety and mood disorder
Chronic Constipation, visiting nurse disimpacts patient daily, pt refuses laxatives
#Generalized weakness
� No concern for MS flareup at this time
# Migraines resolved
� Suspect secondary possibly to worsening deconditioning as well as diarrhea
� Diarrhea improved
� PT/OT
� Physiatry consult
� No evidence of UTI, other infectious source
� Advised to not take NSAIDs regularly
- famotidine twice daily started.
#Urinary Retention with Overflow incontinence
-patient frequently self cath at home baseline
-refuses Palafox
-accepting intermittent cath from nurse staff with [facility] support for overflow incontience
Hyponatremia
Continue to monitor
Hypokalemia
Hypomagnesemia
monitor and replete as necessary
Discussed with patient and her nephew Triston
Discussed with the nurse
CODE STATUS full code
DVT prophylaxis is Lovenox
Anticipated Discharge: 24 - 48 hours
Subjective/Interval History
-
Date of Service: October 11, 2023
Diarrhea resolved, no other acute events overnight.
Objective Data
-
Labs:
Laboratory Results
10/11/23
05:35
WBC 2.9 L
Hgb 12.9
Hct 37.7
Plt Count 241
Sodium 133 L
Potassium 3.5
Chloride 103
Carbon Dioxide 23
BUN 14
Creatinine 0.5 L
Glucose 79
Calcium 8.7
Vital Signs:
Vital Signs
Temp Pulse Resp BP Pulse Ox
98.5 F 87 18 128/64 95
10/11/23 07:39 10/11/23 07:39 10/11/23 07:39 10/11/23 07:39 10/11/23 08:45
I&O
10/10/23 10/11/23 10/12/23
06:59 06:59 06:59
Intake Total 2039 / 2039
Output Total 750 / 750 1675 / 1675 400 / 400
Balance 1290 / 1290 -1675 / -1675 -400 / -400
Review of Systems
-
History Source: Patient
All other systems: Not reviewed unless documented
Data Reviewed
-
Diagnostic Radiology: Image personally visualized and interpreted and Report Reviewed by me
Labs: Labs Reviewed by me
--- NOTE | 2023-10-11 14:43 | CM ---
Chart reviewed and patient has switched to inpatient, IMM completed and placed on chart, patient is agreeable to rehab and is requesting acute rehab, PM&R have been consulted, referral sent to [facility].
Plan; Await recommendations from PM&R.
[2023-10-11 15:13] VITALS: BP 119/49
[2023-10-11] MEDS: LOVENOX 40 MG SC (17:01)
[2023-10-11 21:11] VITALS: BP 122/63
[2023-10-11] MEDS: RESTORIL 30 MG PO (21:13)
[2023-10-12] VITALS: BP 104/62
[2023-10-12 07:30] VITALS: BP 101/46
[2023-10-12] MEDS: CELEXA 40 MG PO (08:16)
[2023-10-12] MEDS: COZAAR PO (08:17)
[2023-10-12] MEDS: NON-FORMULARY ITEM 0.5 MG PO (08:17)
[2023-10-12] MEDS: HIPREX 0.5 GRAM PO ×2 (08:18→20:46)
[2023-10-12] MEDS: LIORESAL 20 MG PO ×4 (08:18→21:06)
[2023-10-12] MEDS: PROVIGIL 100 MG PO (08:19)
[2023-10-12] MEDS: PEPCID 20 MG PO ×2 (08:19→20:46)
[2023-10-12] MEDS: MYRBETRIQ EXTENDED RELEASE 25 MG PO (08:19)
[2023-10-12] MEDS: NORVASC PO (08:19)
[2023-10-12] MEDS: XANAX 0.5 MG PO ×3 (08:20→21:06)
[2023-10-12 08:26] LABS: Hematocrit 37.1 % (37.0-47.0); Hemoglobin 12.7 g/dL (12.0-16.0); Mean Corp Hgb Conc. 34.2 g/dL (33.0-37.0); Mean Corpuscular Hgb 33.8 pg (27.0-31.0); Mean Corpuscular Volume 98.7 fL (81.0-99.0); Mean Platelet Volume 9.6 fL (7.4-10.4); Platelet Count 235 10^3/uL (130-400); Red Blood Cell Count 3.76 10^6/uL (4.20-5.40); Red Cell Dist. Width 12.3 % (11.5-14.5)
[2023-10-12 08:30] LABS: White Blood Cell Count 2.3 10^3/uL (4.8-10.8)
[2023-10-12 09:07] LABS: Blood Urea Nitrogen 15 mg/dl (7-17); Carbon Dioxide 27 mmol/L (22-30); Chloride 103 mmol/L (98-107); Estimated Creatinine Clearance 70 ml/min; Glucose 97 mg/dl (70-99); Magnesium 1.6 mg/dl (1.6-2.3); Potassium 4.1 mmol/L (3.5-5.1); Sodium 135 mmol/L (135-145); eGFR > 60.00
[2023-10-12] MEDS: TYLENOL 650 MG PO (12:43)
--- NOTE | 2023-10-12 13:06 | CM ---
Chart reviewed and caser in spoke with patient and patient reports that she was not accepted at [facility]. Per patient she does not want to go to a skilled facility as she feels she will get less therapy at these
facilities and is requesting [facility], referral sent to [facility] rehab.
Plan; Rehab placement referral sent to [facility] rehab.
--- NOTE | 2023-10-12 14:13 | W.PN.HOSP.TC ---
Today's Communication/Plan
-
await physiatry consult and dispo
medically clear - CM aware
Assessment / Plan
Assessment / Plan
Physical Exam
General: No pallor, cyanosis, or jaundice. Cachectic
HEENT: Throat clear. PERRLA Normocephalic atraumatic
NECK: Supple. No JVD Carotid Bruits
RESPIRATORY: Lungs clear to auscultation. No crackles wheezes stridor
CVS: S1, S2 normal. RRR. No murmur, rub or gallop.
ABDOMEN: Soft, non-tender. No distension. BS+/normal.
EXTREMITIES: No peripheral cyanosis or edema. Thin lower ext's, 1-2/5 strength lower ext's b/l baseline as per patient
BEDSPREAD FOLDER: AOx3
58-year-old female with history of MS presented with generalized weakness, worse over baseline, some urinary symptoms also last couple of days she has some episodes of the vomiting and large bowel movement while wet and loose, concern for viral
gastroenteritis and dehydration, UA showed no evidence of UTI, MS flare ruled out as per neuro eval
Generalized weakness
Concern for MS flareup (ruled out as per Neuro)
Patient self cath at baseline, UA neg for UTI
Nausea and vomiting Possible viral gastroenteritis vs adverse food rxn (resolved)
Mild Hyponatremia stable
Mild Transaminitis resolving
Functional paraplegia
Ambulatory dysfunction
Hypertension
Anxiety and mood disorder
Chronic Constipation, visiting nurse disimpacts patient daily, pt refuses laxatives
#Generalized weakness
� No concern for MS flareup at this time
# Migraines resolved
� Suspect secondary possibly to worsening deconditioning as well as diarrhea
� Diarrhea improved
� PT/OT
� Physiatry consult
� No evidence of UTI, other infectious source
� Advised to not take NSAIDs regularly
- famotidine twice daily started.
#Urinary Retention with Overflow incontinence
-patient frequently self cath at home baseline
-refuses Palafox
-accepting intermittent cath from nurse staff with [facility] support for overflow incontience
Hyponatremia
Continue to monitor
Hypokalemia
Hypomagnesemia
monitor and replete as necessary
Discussed with patient and her nephew Triston
Discussed with the nurse
CODE STATUS full code
DVT prophylaxis is Lovenox
Anticipated Discharge: Within 24 hours
Subjective/Interval History
-
Date of Service: October 12, 2023
no acute events
Objective Data
-
Labs:
Laboratory Results
10/12/23
08:04
WBC 2.3 L*
Hgb 12.7
Hct 37.1
Plt Count 235
Sodium 135
Potassium 4.1
Chloride 103
Carbon Dioxide 27
BUN 15
Creatinine 0.4 L
Glucose 97
Calcium 9.0
Vital Signs:
Vital Signs
Temp Pulse Resp BP Pulse Ox
98.3 F 67 18 101/46 96
10/12/23 07:30 10/12/23 07:30 10/12/23 07:30 10/12/23 08:19 10/12/23 09:25
I&O
10/11/23 10/12/23 10/13/23
06:59 06:59 06:59
Intake Total 1560 / 1560
Output Total 1675 / 1675 1200 / 1200 150 / 150
Balance -1675 / -1675 360 / 360 -150 / -150
Review of Systems
-
History Source: Patient
All other systems: Not reviewed unless documented
Data Reviewed
-
Diagnostic Radiology: Image personally visualized and interpreted and Report Reviewed by me
Labs: Labs Reviewed by me
[2023-10-12 15:00] VITALS: BP 102/60
[2023-10-12] MEDS: LOVENOX 40 MG SC (17:09)
[2023-10-12 20:45] VITALS: BP 100/59
[2023-10-12] MEDS: COZAAR 50 MG PO (20:46)
[2023-10-12] MEDS: RESTORIL 30 MG PO (21:06)
[2023-10-12 23:10] VITALS: BP 115/56
[2023-10-13 07:30] VITALS: BP 120/66
[2023-10-13 08:00] LABS: Hematocrit 38.4 % (37.0-47.0); Mean Corp Hgb Conc. 33.9 g/dL (33.0-37.0); Mean Corpuscular Hgb 33.4 pg (27.0-31.0); Mean Corpuscular Volume 98.7 fL (81.0-99.0); Mean Platelet Volume 9.8 fL (7.4-10.4); Platelet Count 256 10^3/uL (130-400); Red Blood Cell Count 3.89 10^6/uL (4.20-5.40); Red Cell Dist. Width 12.3 % (11.5-14.5); White Blood Cell Count 2.6 10^3/uL (4.8-10.8)
[2023-10-13 08:29] LABS: Blood Urea Nitrogen 17 mg/dl (7-17); Carbon Dioxide 30 mmol/L (22-30); Chloride 105 mmol/L (98-107); Estimated Creatinine Clearance 70 ml/min; Glucose 105 mg/dl (70-99); Magnesium 1.4 mg/dl (1.6-2.3); Phosphorus 4.1 mg/dl (2.5-4.5); Potassium 4.3 mmol/L (3.5-5.1); Sodium 137 mmol/L (135-145); eGFR > 60.00
[2023-10-13] MEDS: CELEXA 40 MG PO (10:12)
[2023-10-13] MEDS: PEPCID 20 MG PO ×2 (10:12→19:55)
[2023-10-13] MEDS: MYRBETRIQ EXTENDED RELEASE 25 MG PO (10:12)
[2023-10-13] MEDS: HIPREX 0.5 GRAM PO ×2 (10:12→19:55)
[2023-10-13] MEDS: NORVASC 5 MG PO (10:13)
[2023-10-13] MEDS: PROVIGIL 100 MG PO (10:13)
[2023-10-13] MEDS: XANAX 0.5 MG PO ×3 (10:13→21:24)
[2023-10-13] MEDS: LIORESAL 20 MG PO ×4 (10:13→21:24)
[2023-10-13] MEDS: COZAAR 50 MG PO ×2 (10:14→19:55)
[2023-10-13] MEDS: NON-FORMULARY ITEM 0.5 MG PO (10:14)
--- NOTE | 2023-10-13 10:52 | CM ---
Addendum entered by Melissa Quijano 10/13/23 14:39:
Updated rehab notes sent via [facility].
Addendum entered by Melissa Quijano 10/13/23 12:16:
Ariana from [facility] requesting PT/OT notes for 10/13/23.
Original Note:
TC from [facility] ADORNO P#[phone] re concerns re home care and possible rehab.
.
Per Belen she lives in [place] and will be here in the area to see patient november 15.
Spoke with patient and she verified Belen is her POA, and can help assist patient with d/c needs.
Both are agreeable to acute rehab.
TC from Ariana at [facility], additional therapy notes sent via [facility].
Plan: rehab when stable.
--- NOTE | 2023-10-13 12:57 | W.PN.HOSP.TC ---
Today's Communication/Plan
-
pending dc - cm aware
mag repletion
Assessment / Plan
Assessment / Plan
Physical Exam
General: No pallor, cyanosis, or jaundice. Cachectic
HEENT: Throat clear. PERRLA Normocephalic atraumatic
NECK: Supple. No JVD Carotid Bruits
RESPIRATORY: Lungs clear to auscultation. No crackles wheezes stridor
CVS: S1, S2 normal. RRR. No murmur, rub or gallop.
ABDOMEN: Soft, non-tender. No distension. BS+/normal.
EXTREMITIES: No peripheral cyanosis or edema. Thin lower ext's, 1-2/5 strength lower ext's b/l baseline as per patient
COIL ASSEMBLER: AOx3
58-year-old female with history of MS presented with generalized weakness, worse over baseline, some urinary symptoms also last couple of days she has some episodes of the vomiting and large bowel movement while wet and loose, concern for viral
gastroenteritis and dehydration, UA showed no evidence of UTI, MS flare ruled out as per neuro eval
Generalized weakness
Concern for MS flareup (ruled out as per Neuro)
Patient self cath at baseline, UA neg for UTI
Nausea and vomiting Possible viral gastroenteritis vs adverse food rxn (resolved)
Mild Hyponatremia stable
Mild Transaminitis resolving
Functional paraplegia
Ambulatory dysfunction
Hypertension
Anxiety and mood disorder
Chronic Constipation, visiting nurse disimpacts patient daily, pt refuses laxatives
#Generalized weakness
� No concern for MS flareup at this time
- Migraines resolved
� Suspect secondary possibly to worsening deconditioning as well as diarrhea
� Diarrhea improved
� PT/OT
� Physiatry consult
� No evidence of UTI, other infectious source
� Advised to not take NSAIDs regularly
- famotidine twice daily started.
#Urinary Retention with Overflow incontinence
-patient frequently self cath at home baseline
-refuses Palafox
-accepting intermittent cath from nurse staff with purewick support for overflow incontience
Hyponatremia
Continue to monitor
Hypokalemia
Hypomagnesemia
monitor and replete as necessary
Discussed with patient and her nephew Triston
Discussed with the nurse
CODE STATUS full code
DVT prophylaxis is Lovenox
Anticipated Discharge: 24 - 48 hours
Subjective/Interval History
-
Date of Service: October 13, 2023
Objective Data
-
Labs:
Laboratory Results
10/13/23
07:33
WBC 2.6 L
Hgb 13.0
Hct 38.4
Plt Count 256
Sodium 137
Potassium 4.3
Chloride 105
Carbon Dioxide 30
BUN 17
Creatinine 0.4 L
Glucose 105 H
Calcium 9.0
Vital Signs:
Vital Signs
Temp Pulse Resp BP Pulse Ox
98.2 F 77 18 120/66 94
10/13/23 07:30 10/13/23 10:13 10/13/23 07:30 10/13/23 10:13 10/13/23 07:30
I&O
10/12/23 10/13/23 10/14/23
06:59 06:59 06:59
Intake Total 1560 / 1560 1470 / 1470
Output Total 1200 / 1200 1400 / 1400
Balance 360 / 360 70 / 70
Review of Systems
-
History Source: Patient
All other systems: Not reviewed unless documented
Data Reviewed
-
Diagnostic Radiology: Image personally visualized and interpreted and Report Reviewed by me
Labs: Labs Reviewed by me
[2023-10-13] MEDS: MAGNESIUM SULFATE 100 IV (14:18)
[2023-10-13 15:00] VITALS: BP 133/74
[2023-10-13] MEDS: LOVENOX 40 MG SC (16:39)
[2023-10-13 19:54] VITALS: BP 107/59
[2023-10-13] MEDS: TYLENOL 650 MG PO (19:56)
[2023-10-13] MEDS: RESTORIL 30 MG PO (21:25)
[2023-10-13 23:07] VITALS: BP 102/53
[2023-10-14 07:30] VITALS: BP 108/55
--- NOTE | 2023-10-14 08:35 | CM ---
Addendum entered by Melissa Quijano 10/14/23 15:43:
Belen ADORNO phone # [phone], please notify if patient being d/c.
TCB from Steve [phone] from [facility]
Bed available tomorrow
Facility address verified
[facility]
Report# [phone] (give patients name, 2 rehab floors not sure which she will be assigned to)

Addendum entered by Melissa Quijano 10/14/23 15:21:
Patient has been accepted at [facility], left at [phone] and at [phone] left .
Spoke with Belen, [place] ADORNO, (POA forms on chart). She has been working on setting up home services for patient after rehab.
Patient has a nurse daily between 7 am and 8 am to get her OOB and cleaned.
Patients niece will be coming 3 days per week from 8 am - 12 pm to assist with medical appointments and patient needs.
SMELTER CHARGER will be coming 12 pm- 4 pm 5 days per week to grocery shop/fix meals.
Belen would like to be updated on day of d/c to make sure she is ready to go and discharge times.
Addendum entered by Melissa Quijano 10/14/23 15:00:
Referral sent for subacute rehab to [facility], per [facility] reviewing for rehab.
Patients sister in law also working on home services.
Plan: rehab when stable vs home with services.
Original Note:
Per Tiki, patient not accepted for acute rehab at at [facility] or [facility].
Will discuss skilled rehab options with patient.
Plan: skilled vs home with sevices
[2023-10-14 08:38] LABS: Hematocrit 39.9 % (37.0-47.0); Hemoglobin 13.4 g/dL (12.0-16.0); Mean Corp Hgb Conc. 33.6 g/dL (33.0-37.0); Mean Corpuscular Hgb 33.6 pg (27.0-31.0); Mean Platelet Volume 9.8 fL (7.4-10.4); Platelet Count 279 10^3/uL (130-400); Red Blood Cell Count 3.99 10^6/uL (4.20-5.40); Red Cell Dist. Width 12.4 % (11.5-14.5); White Blood Cell Count 2.6 10^3/uL (4.8-10.8)
[2023-10-14 08:51] LABS: Blood Urea Nitrogen 18 mg/dl (7-17); Calcium 9.1 mg/dl (8.4-10.2); Carbon Dioxide 30 mmol/L (22-30); Chloride 104 mmol/L (98-107); Estimated Creatinine Clearance 70 ml/min; Glucose 104 mg/dl (70-99); Magnesium 1.8 mg/dl (1.6-2.3); Phosphorus 4.4 mg/dl (2.5-4.5); Potassium 4.4 mmol/L (3.5-5.1); Sodium 136 mmol/L (135-145); eGFR > 60.00
[2023-10-14] MEDS: NORVASC 5 MG PO (09:19)
[2023-10-14] MEDS: CELEXA 40 MG PO (09:19)
[2023-10-14] MEDS: PROVIGIL 100 MG PO (09:20)
[2023-10-14] MEDS: XANAX 0.5 MG PO ×3 (09:20→21:19)
[2023-10-14] MEDS: NON-FORMULARY ITEM 0.5 MG PO (09:21)
[2023-10-14] MEDS: COZAAR 50 MG PO ×2 (09:21→21:23)
[2023-10-14] MEDS: MYRBETRIQ EXTENDED RELEASE 25 MG PO (09:22)
[2023-10-14] MEDS: LIORESAL 20 MG PO ×4 (09:22→21:19)
[2023-10-14] MEDS: HIPREX 0.5 GRAM PO ×2 (09:23→21:19)
[2023-10-14] MEDS: PEPCID 20 MG PO ×2 (09:23→21:19)
--- NOTE | 2023-10-14 13:38 | W.PN.HOSP.TC ---
Today's Communication/Plan
-
pending dc, cm aware for placement
Assessment / Plan
Assessment / Plan
Physical Exam
General: No pallor, cyanosis, or jaundice. Cachectic
HEENT: Throat clear. PERRLA Normocephalic atraumatic
NECK: Supple. No JVD Carotid Bruits
RESPIRATORY: Lungs clear to auscultation. No crackles wheezes stridor
CVS: S1, S2 normal. RRR. No murmur, rub or gallop.
ABDOMEN: Soft, non-tender. No distension. BS+/normal.
EXTREMITIES: No peripheral cyanosis or edema. Thin lower ext's, 1-2/5 strength lower ext's b/l baseline as per patient
SERVICE CENTER REPRESENTATIVE: AOx3
58-year-old female with history of MS presented with generalized weakness, worse over baseline, some urinary symptoms also last couple of days she has some episodes of the vomiting and large bowel movement while wet and loose, concern for viral
gastroenteritis and dehydration, UA showed no evidence of UTI, MS flare ruled out as per neuro eval
Generalized weakness
Concern for MS flareup (ruled out as per Neuro)
Patient self cath at baseline, UA neg for UTI
Nausea and vomiting Possible viral gastroenteritis vs adverse food rxn (resolved)
Mild Hyponatremia stable
Mild Transaminitis resolving
Functional paraplegia
Ambulatory dysfunction
Hypertension
Anxiety and mood disorder
Chronic Constipation, visiting nurse disimpacts patient daily, pt refuses laxatives
#Generalized weakness
� No concern for MS flareup at this time
- Migraines resolved
� Suspect secondary possibly to worsening deconditioning as well as diarrhea
� Diarrhea improved
� PT/OT
� Physiatry consult�planning SNF placement
� No evidence of UTI, other infectious source
� Advised to not take NSAIDs regularly
- famotidine twice daily started.
#Urinary Retention with Overflow incontinence
-patient frequently self cath at home baseline
-refuses Palafox
-accepting intermittent cath from nurse staff with purewick support for overflow incontience
Hyponatremia
Continue to monitor
�Resolved
Hypokalemia
Hypomagnesemia
monitor and replete as necessary
Discussed with patient and her nephew Triston
Discussed with the nurse
CODE STATUS full code
DVT prophylaxis is Lovenox
Anticipated Discharge: Within 24 hours
Subjective/Interval History
-
Date of Service: October 14, 2023
No acute events
Objective Data
-
Labs:
Laboratory Results
10/14/23
08:13
WBC 2.6 L
Hgb 13.4
Hct 39.9
Plt Count 279
Sodium 136
Potassium 4.4
Chloride 104
Carbon Dioxide 30
BUN 18 H
Creatinine 0.4 L
Glucose 104 H
Calcium 9.1
Vital Signs:
Vital Signs
Temp Pulse Resp BP Pulse Ox
98.0 F 68 18 108/55 95
10/14/23 07:30 10/14/23 09:19 10/14/23 07:30 10/14/23 09:19 10/14/23 09:07
I&O
10/13/23 10/14/23 10/15/23
06:59 06:59 06:59
Intake Total 1470 / 1470 1320 / 1320
Output Total 1400 / 1400 1650 / 1650
Balance 70 / 70 -330 / -330
Review of Systems
-
History Source: Patient
All other systems: Not reviewed unless documented
Data Reviewed
-
Diagnostic Radiology: Image personally visualized and interpreted and Report Reviewed by me
Labs: Labs Reviewed by me
[2023-10-14 15:15] VITALS: BP 105/57
[2023-10-14] MEDS: LOVENOX 40 MG SC (16:38)
[2023-10-14] MEDS: TYLENOL 650 MG PO ×2 (17:28→21:20)
[2023-10-14] MEDS: RESTORIL 30 MG PO (21:19)
[2023-10-14 23:23] VITALS: BP 106/66
[2023-10-15 07:30] VITALS: BP 118/55
[2023-10-15] MEDS: CELEXA 40 MG PO (08:48)
[2023-10-15] MEDS: NORVASC 5 MG PO (08:48)
[2023-10-15] MEDS: MYRBETRIQ EXTENDED RELEASE 25 MG PO (08:49)
[2023-10-15] MEDS: HIPREX 0.5 GRAM PO (08:49)
[2023-10-15] MEDS: LIORESAL 20 MG PO ×2 (08:50→12:26)
[2023-10-15] MEDS: TYLENOL 650 MG PO (08:50)
[2023-10-15] MEDS: PROVIGIL 100 MG PO (08:51)
[2023-10-15] MEDS: XANAX 0.5 MG PO (08:52)
[2023-10-15] MEDS: PEPCID 20 MG PO (08:52)
[2023-10-15] MEDS: NON-FORMULARY ITEM 0.5 MG PO (08:52)
[2023-10-15] MEDS: COZAAR 50 MG PO (08:52)
--- NOTE | 2023-10-15 10:17 | CM ---
Addendum entered by Jade Kidd 10/15/23 11:56:
[facility]
Report# [phone] (give patients name, 2 rehab floors not sure which she will be assigned to)

Addendum entered by Jade Kidd 10/15/23 11:55:
IMM completed and signed forms for transfer placed on chart.
Original Note:
CM updated physician re available bed and POA about pending transfer. Awaiting discharge and transfer via ambulance. CM will continue to follow for discharge planning needs.
Plan; [facility].
[2023-10-15] MEDS: FLEET MINERAL OIL ENEMA 133 ML RECTAL (10:26)
--- NOTE | 2023-10-15 11:07 | W.PN.HOSP.TC ---
Addendum entered and electronically signed by Mohan Vasquez MD 10/15/23 15:31:
[id number]
Original Note:
Today's Communication/Plan
-
dc
bowel regimen as needed;
f/u pcp outpatient
Assessment / Plan
Assessment / Plan
Physical Exam
General: No pallor, cyanosis, or jaundice. Cachectic
HEENT: Throat clear. PERRLA Normocephalic atraumatic
NECK: Supple. No JVD Carotid Bruits
RESPIRATORY: Lungs clear to auscultation. No crackles wheezes stridor
CVS: S1, S2 normal. RRR. No murmur, rub or gallop.
ABDOMEN: Soft, non-tender. No distension. BS+/normal.
EXTREMITIES: No peripheral cyanosis or edema. Thin lower ext's, 1-2/5 strength lower ext's b/l baseline as per patient
MORPHOLOGIST: AOx3
58-year-old female with history of MS presented with generalized weakness, worse over baseline, some urinary symptoms also last couple of days she has some episodes of the vomiting and large bowel movement while wet and loose, concern for viral
gastroenteritis and dehydration, UA showed no evidence of UTI, MS flare ruled out as per neuro eval
Generalized weakness
Concern for MS flareup (ruled out as per Neuro)
Patient self cath at baseline, UA neg for UTI
Nausea and vomiting Possible viral gastroenteritis vs adverse food rxn (resolved)
Mild Hyponatremia stable
Mild Transaminitis resolving
Functional paraplegia
Ambulatory dysfunction
Hypertension
Anxiety and mood disorder
Chronic Constipation, visiting nurse disimpacts patient daily, pt refuses laxatives
#Generalized weakness
� No concern for MS flareup at this time
- Migraines resolved
� Suspect secondary possibly to worsening deconditioning as well as diarrhea
� Diarrhea resolved
� PT/OT
� Physiatry consult�planning SNF placement
� No evidence of UTI, other infectious source
� Advised to not take NSAIDs regularly
- famotidine twice daily started.
#Urinary Retention with Overflow incontinence
-patient frequently self cath at home baseline
-refuses Palafox
-accepting intermittent cath from nurse staff with purewick support for overflow incontience
Hyponatremia
Continue to monitor
�Resolved
Hypokalemia
Hypomagnesemia
monitor and replete as necessary
Constipation
-chronic
-disimpacted by nurse at home regularly
-fears miralax due to diarrhea
-Can trial enema
CODE STATUS full code
DVT prophylaxis is Lovenox
More than 30 minutes spent in discharge including
Final examination of the patient
Summarizing hospital stay
Instructions for continuing care to all relevant caregivers
Preparation of discharge records, prescriptions, and referral forms
Total time spent (35 in minutes):
Anticipated Discharge: Today
Subjective/Interval History
-
Date of Service: October 15, 2023
No acute events overnight
Objective Data
-
Vital Signs:
Vital Signs
Temp Pulse Resp BP Pulse Ox
98.3 F 67 8 118/55 96
10/15/23 07:30 10/15/23 08:48 10/15/23 07:30 10/15/23 08:48 10/15/23 07:30
I&O
10/14/23 10/15/23 10/16/23
06:59 06:59 06:59
Intake Total 1320 / 1320 2280 / 2280
Output Total 1650 / 1650 925 / 925
Balance -330 / -330 1355 / 1355
Review of Systems
-
History Source: Patient
All other systems: Not reviewed unless documented
Data Reviewed
-
Diagnostic Radiology: Image personally visualized and interpreted and Report Reviewed by me
Labs: Labs Reviewed by me
--- NOTE | 2023-10-15 11:10 | W.DS.TRANS ---
DC Summary - Patient Ombudsperson
-
Discharge Instructions:
Discharge Diagnosis/Procedures
#Generalized weakness
#Urinary Retention with Overflow incontinence
Diet Low Cholesterol,Low Fat
Activity As tolerated
Instructions:
Stand-Alone Forms:
Changes to Home Medications: No
Discharge Medications:
DC Medications w/original date entered in [facility]
fingolimod 0.5 mg capsule (Gilenya) 0.5 mg PO DAILY MS 06/30/17
losartan 50 mg tablet 50 mg PO BID Blood pressure 06/30/17
multivitamin with minerals (Hair,Skin and Nails tablet) 1 ea PO DAILY Supplement 01/23/19
citalopram 20 mg tablet 40 mg PO DAILY Depression 05/31/19
alprazolam 0.5 mg tablet 0.5 mg PO TID Mental Health/Anxiety 12/09/20
baclofen 20 mg tablet 20 mg PO QID Muscle spasms 12/09/20
methenamine hippurate 1 gram tablet 500 mg PO BID Urinary issue 12/09/20
mirabegron 25 mg tablet,extended release 24 hr (Myrbetriq) 25 mg PO DAILY Urinary issue 12/09/20
modafinil 200 mg tablet 100 mg PO DAILY Stimulant 12/09/20
temazepam 15 mg capsule 30 mg PO HS Sleep 12/09/20
amlodipine 5 mg tablet (Norvasc) 5 mg PO DAILY #20 tabs 05/08/21
cranberry fruit concentrate 250 mg chewable tablet (Azo Cranberry) 500 mg PO DAILY 10/09/23
famotidine 20 mg tablet 20 mg PO BID #0 tabs 10/15/23
Home Medication Changes
avoid nsaids
Start: famotidine 20 mg tablet 20 mg PO BID #0 tabs 10/15/23
Pending Results: No
== END 2023-10-15 14:37 | DRG 948 ==
LOC: 4 WEST ACU 11:51
PROVIDERS: Internal Medicine; Physician Assistant; ADMITTING PHYSICIAN Internal Medicine; ATTENDING PHYSICIAN Internal Medicine; CONSULT PHYSICIAN Physical Medicine & Rehabilitation; CONSULT PHYSICIAN Psychiatry & Neurology Neurology; EMERGENCY PHYSICIAN Emergency Medicine; FAMILY PHYSICIAN Physician Assistant Medical
DX: R53.81 Other malaise (principal); E87.1 Hypo-osmolality and hyponatremia; R64 Cachexia; Z68.1 Body mass index [BMI] 19.9 or less, adult; R33.9 Retention of urine, unspecified; G35 Multiple sclerosis; I10 Essential (primary) hypertension; F32.A Depression, unspecified; F41.9 Anxiety disorder, unspecified; E87.6 Hypokalemia; E83.42 Hypomagnesemia; N39.490 Overflow incontinence; Z11.52 Encounter for screening for COVID-19
CPT/HCPCS: 51701; 71045; 80048; 80053; 81003; 82607; 82728; 82746; 83605; 83735; 84100; 84443; 85025; 85027; 85610; 85652; 87040; 87070; 87147; 87502; 87811; 96374; 97163; 97167; 97530; 97535; 99284

== ENCOUNTER 2023-12-09 18:35 | Emergency (ER) | payer MEDICARE, OTHER, SELFPAY ==
[2023-12-09 19:12] VITALS: BP 113/44
--- NOTE | 2023-12-09 19:29 | ED.PDOC.TRB ---
ED Provider Triage
-
Patient seen by provider in Triage?: Seen in Triage
*Initial assessment performed in triage to expedite assessment*
58 yo female w/ hx of MS presenting upon recommendation of visiting nurses due to 'cold, purple feet'. She has chronic LE atrophy and debility due to MS, chronically non ambulatory. Visiting nurses concerned that feet are cold. Palpable DP pulses
bilaterally, sensation intact globally to bilat feet. No prior vascular disease, former smoker. Does have a non healing wound to L lateral ankle.
Pulses palpable, doubt arterial occlusion.
--- NOTE | 2023-12-09 22:28 | ED.GENMED ---
History of Present Illness
General
Chief Complaint: Musculo-Skeletal Complaint
Source: patient
Time Seen by Provider: 12/09/23 21:58
Travel History
Have you had any contact with someone who has COVID-19?: No
Do you have any symptoms of coronavirus? Fever > 100 degrees, chills, cough, shortness of breath, sore throat, loss of taste or smell, muscle aches, or headache?: No
History of Present Illness
History of Present Illness:
This patient is a 58-year-old female presents emergency department by referral from her OT and aide that is with her at home. The patient has a history of MS and is nonambulatory. She states that she normally has decreased sensation in her feet
but she can feel when someone is touching her feet as I am today. The note that accompanies her states 'both feet numb. Increased redness/discoloration on feet patient reports feet are cold and cannot get them warm. Her cyst and states her feet
had a significant change since last seen. Left ankle wound started/nonhealing. Called primary care nurse�they requested ER visit for imaging due to the rapid change.'. Patient states that she has had a rash noted at both feet, lateral aspect
bilaterally which is thought to potentially be eczema or psoriasis. She has been applying a cream to this and states it has been improving and she has a dermatology appointment on Wednesday. She is upset because it was suggested to her that her feet
were purple and that she may not be getting per proper blood flow. She states that she has had this redness to her feet for at least several weeks, and does not appreciate purpleish discoloration, cyanosis, or other abnormalities. She denies pain,
or numbness that is new or different. She denies chest pain, shortness of breath, abdominal pain, nausea, vomiting, fever, chills, or other complaints.
Past History
Past History
ED Past Medical History: HTN, Psychiatric and Other (MS, hemochromatosis, frequent UTIs, self-catheterization, right hip dislocation, emphysema)
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
Social History
Tobacco: Former smoker
Alcohol: Former
Drug: None
Personal:
Living: alone
Employment: Disabled
Family History
Family History: Other (reviewed and non-contributory)
Phy Exam
Physical Exam
Physical Exam:
GENERAL: Alert , in no apparent distress
EYE: pupils equal and reactive
NECK: Supple, no significant adenopathy.
ENT: o/p clr, mmm.
CARDIAC: Regular rate and rhythm .
LUNGS: Clear breath sounds bilaterally, no acute respiratory distress, no wheezes/rales/rhonchi
ABDOMEN: Soft, without focal tenderness, no r/g
NEUROLOGICAL: awake, alert,pleasant. Chronic le paralysis (min movement of toes bilat), sens present to light touch, cn 2-12intact.
SKIN: Warm and dry, skin intact but for psoriatic appearing rash on lateral aspect R foot, medial aspect L foot and heel. There are pulses not dp/pt bilat to palpation and to doppler bedside exam by me (and pt appreciated as well). No cyanosis,
pallor. feet are warm and well perfused.. There is a superficial wound with mild erythema L lat mall without fluctuance/crepitus/streaking.
MUSCULOSKELETAL: as above, well perfused.
PSYCH: Normal and appropriate interaction.
Course
Orders/Labs/Results
Orders:
Orders
12/09/23 22:38
Cephalexin Monohydrate [Keflex] 500 mg PO NOW STA
Vital Signs
Initial and Last Documented VS:
Initial Vital Signs
Temp Pulse Resp BP Pulse Ox
98.7 F 85 18 113/44 95
12/09/23 19:12 12/09/23 19:12 12/09/23 19:12 12/09/23 19:12 12/09/23 19:12
Last Documented Vital Signs
Temp Pulse Resp BP Pulse Ox
98.6 F 75 18 146/80 98
12/10/23 00:04 12/10/23 00:04 12/10/23 00:04 12/10/23 00:04 12/10/23 00:04
*Critical Care Note
Total Time (30-74mins, 75-104mins- exclusive of procedures): Not Applicable
Update Note
Update Note:
Patient presents to the Emergency Department with __reported changes of feet bilaterally
Number and Complexity of Problems Addressed at the Encounter
� Chronic conditions affecting care:
� Acute Exacerbation and/or Progression of Chronic Illness:
� Differential Diagnosis includes: But not limited to MS related changes, infection, vascular insufficiency, dermatologic rash, etc.
Amount and/or Complexity of Data to be Reviewed and Analyzed
� I performed an independent evaluation of and my interpretation is:
EKG:
CT:
Xrays:
Laboratory Studies:
Other:
� Review of other/old records reveals: Patient was recently admitted to the hospital with a UTI, has chronic urinary retention
� Clinical information was obtained by an independent historian: Paper that came with the patient as quoted above
� Prescriptions/Medications Considered but not given:
� Further testing considered but not performed:
Risk of Complications and/or Morbidity or Mortality of Patient Management
� Social determinants of health affecting care:
� Discussion with other providers (PCP, Hospitalists, Consultants, etc):
� Escalation of care including admission/observation vs risk of discharge considered: Physical exam is extremely reassuring for adequate perfusion. I do not clinically suspect vascular occlusion. Her exam is most consistent
with a psoriatic appearing rash as well as a early cellulitis of the left lateral ankle area. Will begin p.o. antibiotics and advised patient to continue the steroid cream that she has been using with dermatology follow-up. Discussed with patient
importance of follow-up and reasons to return to the ER.
ED Attending Note
-
Portions of this chart may have been created with voice recognition software.� Occasional wrong word or��sound alike� substitutions may have occurred due to the inherent limitations of voice recognition software.
Discharge Plan
Departure
Patient Disposition: Home (Routine Discharge)
Date of Disposition: 12/09/23
Time of Disposition: 22:35
Patient with high blood pressure during this ER visit?: No
Discharge Problem:
Cellulitis, Multiple sclerosis
Instructions: Psoriasis, Cellulitis (Skin Infection), Adult ED
Prescriptions:
New
cephalexin 500 mg capsule
500 mg PO TID 7 Days Qty: 21 0RF
No Action
losartan 50 MG tablet
50 mg PO BID
Patient Comments:
the pt states she changed herself from daily to BID for the past 6 weeks
fingolimod [Gilenya] 0.5 MG capsule
0.5 mg PO DAILY
Hair,Skin and Nails 1 EACH tablet
1 ea PO DAILY
citalopram 20 MG tablet
40 mg PO DAILY
baclofen 20 MG tablet
20 mg PO QID
modafinil 200 MG tablet
100 mg PO DAILY
Patient Comments:
12/09/20- PT LAST PICKED UP 10/28/20#30
Myrbetriq 25 MG tablet extended release 24 hr
25 mg PO DAILY
alprazolam 0.5 MG tablet
0.5 mg PO TID
Patient Comments:
12/09/20 - PT LAST PICKED UP 11/27/20 #90
methenamine hippurate 1 GRAM tablet
500 mg PO BID
temazepam 15 MG capsule
30 mg PO HS
Patient Comments:
12/09/20 - PT LAST PICKED UP 11/27/20 #60
amlodipine [Norvasc] 5 MG tablet
5 mg PO DAILY Qty: 20 1RF
Azo Cranberry 250 mg Tablet,Chewable
500 mg PO DAILY
famotidine 20 mg Tablet
20 mg PO BID Qty: 0 0RF
Referrals:
Ayse Carlos PA [Family Provider] -
Activity Restrictions/Additional Instructions:
CONTINUE APPLYING THE STEROID CREAM TO THE RASH NOTED AT YOUR FEET BILATERALLY. WE HAVE STARTED YOU ON ORAL ANTIBIOTICS FOR THE EMERGING CELLULITIS AT THE LEFT ANKLE AREA. PLEASE MONITOR THIS AREA CLOSELY, AND TRY TO RELIEVE PRESSURE ON THIS AREA.
IF YOU DEVELOP INCREASING OR NEW FINDINGS, FEVER, PALE EXTREMITIES, DISCOLORATION/PURPLISH/BLUE EXTREMITIES, PAIN, DRAINAGE, OR OTHER WORRISOME SIGNS, PLEASE RETURN TO THE ER IMMEDIATELY. PLEASE SEE YOUR REFRIGERATION INSULATOR ON WEDNESDAY SCHEDULED.
Interventions
Interventions:
*Risk Screen - Suicide Last Done: 12/09/23 19:12
*General Assessment Last Done: 12/09/23 19:12
*Neglect/Abuse Screening Last Done: 12/09/23 19:12
*ED COVID-19 Vaccine History Last Done: 12/09/23 19:12
*Nursing Disposition Last Done: 12/10/23 00:05
ED-Musculoskeletal Assessment Last Done: 12/09/23 22:22
Discharge Date and Time
Discharge Date/Time: 12/10/23 00:10
Print Language: TURKMEN
[2023-12-09] MEDS: KEFLEX 500 MG PO (23:08)
[2023-12-10 00:04] VITALS: BP 146/80
== END 2023-12-10 00:10 | disposition home or self-care (01) ==
LOC: EMR 18:35
PROVIDERS: EMERGENCY PHYSICIAN Emergency Medicine; FAMILY PHYSICIAN Physician Assistant Medical
DX: G35 Multiple sclerosis (principal); L03.116 Cellulitis of left lower limb; R20.0 Anesthesia of skin; S90.912A Unspecified superficial injury of left ankle, initial encounter; X58.XXXA Exposure to other specified factors, initial encounter; I10 Essential (primary) hypertension; E83.119 Hemochromatosis, unspecified; J43.9 Emphysema, unspecified; Z87.440 Personal history of urinary (tract) infections; Z87.891 Personal history of nicotine dependence; Z89.411 Acquired absence of right great toe
CPT/HCPCS: 99283

== ENCOUNTER → 2024-08-28 09:46 | Outpatient (REF) | payer MEDICARE, OTHER, SELFPAY | LOC: HWRAD 09:46 | PROVIDERS: ATTENDING PHYSICIAN Specialist; FAMILY PHYSICIAN Physician Assistant Medical | DX: N31.9 Neuromuscular dysfunction of bladder, unspecified (principal) | CPT/HCPCS: 76770 ==

== ENCOUNTER → 2024-09-18 09:56 | Outpatient (REF) | payer MEDICARE, OTHER, SELFPAY | LOC: HWRAD 09:56 | PROVIDERS: ATTENDING PHYSICIAN Specialist; FAMILY PHYSICIAN Physician Assistant Medical | DX: N20.0 Calculus of kidney (principal) | CPT/HCPCS: 74176 ==